=== PATIENT | male | born 1970 | race Caucasian/White ===

== ENCOUNTER 2022-07-06 15:17 | Inpatient (IN) | payer SELFPAY ==
[2022-07-06 16:23] LABS: #Basophils 0.1 thou/uL (0.0-0.2); #Eosinphils 0.2 thou/uL (0.0-0.7); #Lymphocytes 2.9 thou/uL (1.20-3.40); #Monocytes 0.9 thou/uL (0.11-0.59); #Neutrophils 7.7 thou/uL (1.40-6.50); %Basophils 1.1 % (0.0-1.0); %Eosinophils 1.9 % (0.0-10.0); %Lymphocytes 24.3 % (21.0-51.0); %Monocytes 7.5 % (0.0-10.0); %Neutrophils 65.3 % (42.0-75.0); Hemoglobin 13.9 g/dL (14.0-18.0); Mean Corpuscular HGB CONC 33.4 g/dL (32.0-36.0); Mean Corpuscular Hemoglobin 30.2 pg (27.0-31.0); Mean Corpuscular Volume 90.4 fl (78.0-98.0); Mean Platelet Volume 8.9 fL (7.4-10.4); Platelet Count 248 10x3/uL (130-400); RBC Distribution Width 13.1 % (11.5-14.5); Red Blood Cell (RBC) Count 4.62 mill/uL (4.70-6.10); White Blood Cell (WBC) Count 11.8 10x3/uL (4.8-10.8)
[2022-07-06 16:43] LABS: ALT (SGPT) 31 U/L (8-55); AST (SGOT) 18 U/L (5-34); Albumin 3.7 g/dL (3.5-5.0); Alkaline Phosphatase 106 U/L (40-110); Anion Gap 14 mmol/L (10-20); BUN (Urea Nitrogen) 19 mg/dL (8.4-25.7); Bilirubin, Total 0.6 mg/dL (0.2-1.2); Calc. Creatinine Clearance 0 mL/min (70-130); Calcium 9.1 mg/dL (7.8-10.44); Carbon Dioxide 22 mmol/L (22-29); Chloride 103 mmol/L (98-107); Estimated GFR 78; Globulin 2.9 g/dL (2.4-3.5); Potassium 4.1 mmol/L (3.5-5.1); Protein, Total 6.6 g/dL (6.0-8.3); Sodium 135 mmol/L (136-145)
[2022-07-06 16:46] LABS: Glucose 426 mg/dL (70-105)
[2022-07-06] MEDS ORDERED: cefTRIAXone\\ROCEPHIN 2 GM VIAL ONE (17:13)
[2022-07-06] MEDS ORDERED: Acetaminophen 325 MG TAB PO PRN (17:15)
[2022-07-06] MEDS ORDERED: Ondansetron PF 4 MG/2 ML Vial IVP PRN (17:15)
[2022-07-06] MEDS ORDERED: Vancomycin HCl 1.25 GM in Sodium Chloride 0.9% 250 ML 300 ML IVPB SCH (17:15)
[2022-07-06] MEDS ORDERED: Dextrose 50% Abboject 50 ML SYRINGE SLOW IVP PRN (17:19)
[2022-07-06] MEDS ORDERED: Dextrose 5% in Water 1,000 ML IV PRN (17:19)
[2022-07-06 17:41] LABS: Hemoglobin A1c 10.2 % (4.0-6.0)
[2022-07-06] MEDS ORDERED: Cefepime 2 GM in Sodium Chloride 0.9% 100 ML IVPB SCH (18:00)
[2022-07-06] MEDS ORDERED: VANCOMYCIN 2 GRAM/500 ML BAG 2 GM in Premix Bag 1 BAG IVPB SCH (18:00)
[2022-07-06 21:31] VITALS: BMI 39.6
[2022-07-06] MEDS: Atorvastatin Calcium 20 MG TAB PO SCH (22:15)
[2022-07-06] MEDS: Cefepime 2 GM in Sodium Chloride 0.9% 100 ML IVPB SCH (22:16)
[2022-07-06] MEDS: Sodium Chloride 0.9% 1,000 ML IV SCH (22:16)
[2022-07-06] MEDS: glyBURIDE 5 MG TAB PO SCH (22:17)
[2022-07-06] MEDS: HumaLOG 300 UNITS/3 ML VIAL SC PRN (22:18)
[2022-07-07 05:26] LABS: #Basophils 0.1 thou/uL (0.0-0.2); #Eosinphils 0.3 thou/uL (0.0-0.7); #Lymphocytes 3.2 thou/uL (1.20-3.40); #Monocytes 1.1 thou/uL (0.11-0.59); #Neutrophils 6.8 thou/uL (1.40-6.50); %Basophils 0.9 % (0.0-1.0); %Eosinophils 2.8 % (0.0-10.0); %Lymphocytes 27.7 % (21.0-51.0); %Monocytes 9.5 % (0.0-10.0); Mean Corpuscular HGB CONC 33.2 g/dL (32.0-36.0); Mean Corpuscular Hemoglobin 30.1 pg (27.0-31.0); Mean Corpuscular Volume 90.8 fl (78.0-98.0); Mean Platelet Volume 8.8 fL (7.4-10.4); Platelet Count 232 10x3/uL (130-400); RBC Distribution Width 13.1 % (11.5-14.5); Red Blood Cell (RBC) Count 4.32 mill/uL (4.70-6.10); White Blood Cell (WBC) Count 11.6 10x3/uL (4.8-10.8)
[2022-07-07 05:48] LABS: Anion Gap 13 mmol/L (10-20); BUN (Urea Nitrogen) 18 mg/dL (8.4-25.7); Calc. Creatinine Clearance 195 mL/min (70-130); Calcium 8.6 mg/dL (7.8-10.44); Carbon Dioxide 23 mmol/L (22-29); Chloride 104 mmol/L (98-107); Estimated GFR 106; Glucose 271 mg/dL (70-105); Potassium 3.8 mmol/L (3.5-5.1); Sodium 136 mmol/L (136-145)
[2022-07-07] MEDS: Sodium Chloride 0.9% 1,000 ML IV SCH ×2 (06:05→12:24)
[2022-07-07] MEDS: VANCOMYCIN 2 GRAM/500 ML BAG 2 GM in Premix Bag 1 BAG IVPB SCH ×2 (06:05→18:25)
[2022-07-07] MEDS: HumaLOG 300 UNITS/3 ML VIAL SC PRN ×4 (06:06→21:50)
[2022-07-07] MEDS ORDERED: Alogliptin 25 MG TAB PO SCH (09:00)
[2022-07-07] MEDS: metFORMIN 500 MG TAB PO SCH ×2 (09:02→17:52)
[2022-07-07] MEDS: Montelukast Sodium 10 mg Tablet PO SCH (09:02)
[2022-07-07] MEDS: Lisinopril/Hydrochlorothiazide 20 mg/12.5 mg Tablet PO SCH (09:03)
[2022-07-07] MEDS: Saccharomyces boulardii 250 MG CAP PO SCH (09:03)
[2022-07-07] MEDS: glyBURIDE 5 MG TAB PO SCH ×2 (09:03→17:52)
[2022-07-07] MEDS: FLUoxetine HCl 20 MG CAP PO SCH (09:03)
[2022-07-07] MEDS: Multivit, Therapeutic 1 TAB PO SCH (09:03)
[2022-07-07] MEDS: Cefepime 2 GM in Sodium Chloride 0.9% 100 ML IVPB SCH ×2 (10:52→21:58)
[2022-07-07] MEDS ORDERED: Dextrose 50% Abboject 50 ML SYRINGE SLOW IVP PRN (15:48)
[2022-07-07] MEDS ORDERED: Dextrose 5% in Water 1,000 ML IV PRN (15:48)
[2022-07-07] MEDS ORDERED: Insulin Glargine 30 UNITS/0.3 ML VIAL SC SCH (21:00)
[2022-07-07] MEDS: Atorvastatin Calcium 20 MG TAB PO SCH (21:49)
[2022-07-08] MEDS: Sodium Chloride 0.9% 1,000 ML IV SCH (01:21)
[2022-07-08 05:15] LABS: #Basophils 0.1 thou/uL (0.0-0.2); #Eosinphils 0.3 thou/uL (0.0-0.7); #Lymphocytes 2.7 thou/uL (1.20-3.40); #Neutrophils 7.4 thou/uL (1.40-6.50); %Basophils 0.9 % (0.0-1.0); %Eosinophils 2.6 % (0.0-10.0); %Lymphocytes 23.4 % (21.0-51.0); %Monocytes 8.6 % (0.0-10.0); %Neutrophils 64.5 % (42.0-75.0); Hemoglobin 12.6 g/dL (14.0-18.0); Mean Corpuscular HGB CONC 32.2 g/dL (32.0-36.0); Mean Corpuscular Hemoglobin 29.1 pg (27.0-31.0); Mean Corpuscular Volume 90.5 fl (78.0-98.0); Mean Platelet Volume 8.9 fL (7.4-10.4); Platelet Count 231 10x3/uL (130-400); RBC Distribution Width 13.1 % (11.5-14.5); Red Blood Cell (RBC) Count 4.33 mill/uL (4.70-6.10); White Blood Cell (WBC) Count 11.4 10x3/uL (4.8-10.8)
[2022-07-08 05:33] LABS: Vancomycin, Trough 19.3 ug/mL
[2022-07-08 05:35] LABS: ALT (SGPT) 28 U/L (8-55); AST (SGOT) 17 U/L (5-34); Albumin 3.3 g/dL (3.5-5.0); Alkaline Phosphatase 96 U/L (40-110); Anion Gap 12 mmol/L (10-20); BUN (Urea Nitrogen) 13 mg/dL (8.4-25.7); Bilirubin, Total 0.5 mg/dL (0.2-1.2); Calc. Creatinine Clearance 195 mL/min (70-130); Calcium 8.5 mg/dL (7.8-10.44); Carbon Dioxide 23 mmol/L (22-29); Chloride 105 mmol/L (98-107); Estimated GFR 106; Globulin 2.5 g/dL (2.4-3.5); Glucose 203 mg/dL (70-105); Potassium 3.7 mmol/L (3.5-5.1); Protein, Total 5.8 g/dL (6.0-8.3); Sodium 136 mmol/L (136-145)
[2022-07-08] MEDS ORDERED: VANCOMYCIN 1.75 GM/500 ML BAG 1.75 GM in Premix Bag 1 BAG IVPB SCH (06:00)
[2022-07-08] MEDS: HumaLOG 300 UNITS/3 ML VIAL SC PRN (06:02)
[2022-07-08 08:39] VITALS: BP 137/88; TEMP 97.6
[2022-07-08] MEDS: Lisinopril/Hydrochlorothiazide 20 mg/12.5 mg Tablet PO SCH (09:07)
[2022-07-08] MEDS: metFORMIN 500 MG TAB PO SCH (09:07)
[2022-07-08] MEDS: FLUoxetine HCl 20 MG CAP PO SCH (09:08)
[2022-07-08] MEDS: Montelukast Sodium 10 mg Tablet PO SCH (09:08)
[2022-07-08] MEDS: Saccharomyces boulardii 250 MG CAP PO SCH (09:08)
[2022-07-08] MEDS: glyBURIDE 5 MG TAB PO SCH (09:08)
[2022-07-08] MEDS: Multivit, Therapeutic 1 TAB PO SCH (09:08)
[2022-07-08 12:16] LABS: Glucose 224 mg/dL (70-105)
== END 2022-07-08 13:31 | disposition home or self-care (01) | DRG 603 ==
LOC: ERS 15:17 → OBSVTOIN 17:15 → MSONC 17:15
PROVIDERS: ADMIT Internal Medicine; ATTEND Internal Medicine
PROC: 5A09357 Assistance with Respiratory Ventilation, Less than 24 Consecutive Hours, Continuous Positive Airway Pressure (ICD-10-PCS; 2022-07-06)
PROC: 0HDNXZZ Extraction of Left Foot Skin, External Approach (ICD-10-PCS; principal; 2022-07-07)
DX: L03.116 Cellulitis of left lower limb (principal); G47.33 Obstructive sleep apnea (adult) (pediatric); I10 Essential (primary) hypertension; M19.90 Unspecified osteoarthritis, unspecified site; F17.210 Nicotine dependence, cigarettes, uncomplicated; E11.40 Type 2 diabetes mellitus with diabetic neuropathy, unspecified; E11.65 Type 2 diabetes mellitus with hyperglycemia; E66.9 Obesity, unspecified; E78.5 Hyperlipidemia, unspecified; S90.422A Blister (nonthermal), left great toe, initial encounter; E66.01 Morbid (severe) obesity due to excess calories; Z20.822 Contact with and (suspected) exposure to COVID-19; Z98.890 Other specified postprocedural states; Z88.8 Allergy status to other drugs, medicaments and biological substances; Z79.84 Long term (current) use of oral hypoglycemic drugs; Z79.899 Other long term (current) drug therapy; Z68.39 Body mass index [BMI] 39.0-39.9, adult
CPT/HCPCS: 36415; 36416; 80048; 80053; 80202; 83036; 83605; 85025; 87040; 96365; 96366; 96367; 97139; J0692; J0696; J1650; J1815; J3370; J3490; J7050; U0003; U0005